=== PATIENT | female | born 1965 | race African-American/Black ===

== ENCOUNTER 2024-02-01 12:08 | Emergency (ER) | payer SELFPAY ==
[2024-02-01] MEDS: predniSONE 20 MG Tab PO ONE (18:56)
[2024-02-01] MEDS: Ketorolac 60 MG/2 ML SDV IM ONE (18:56)
== END 2024-02-01 19:57 | disposition home or self-care (01) ==
LOC: JD.ED 12:08
DX: M54.50 Low back pain, unspecified (principal); Z79.899 Other long term (current) drug therapy
CPT/HCPCS: 96372; 99283; J1885; J7512

== ENCOUNTER 2024-02-03 04:24 | Emergency (ER) | payer SELFPAY ==
[2024-02-03] MEDS: Ketorolac 60 MG/2 ML SDV IM ONE (05:13)
[2024-02-03] MEDS: Orphenadrine 60 MG/2 ML Inj IM ONE (05:16)
[2024-02-03] MEDS: Triamcinolone Acetonide 40 MG/ML 1 ML SDV IM ONE (05:17)
== END 2024-02-03 07:10 | disposition home or self-care (01) ==
LOC: JD.ED 04:24
DX: M54.41 Lumbago with sciatica, right side (principal)
CPT/HCPCS: 96372; 99283; J1885; J2360; J3301